=== PATIENT | female | born 1955 | race Caucasian/White ===

== ENCOUNTER 2018-12-25 18:02 | Inpatient (IN) ==
[2018-12-25] MEDS ORDERED: Sod Chloride 0.9% Inj 1,000 ML IV.SIG ONE (20:00)
--- NOTE | 2018-12-25 20:09 | ED ---
HPI General Chief complaint: Nausea/Vomiting/Diarrhea Stated complaint: Slight pain right arm /vomiting/diarrhea complaint Time Seen by Provider: 12/25/18 19:48 Source: patient and RN notes reviewed Mode of arrival: ambulatory Limitations: no limitations History of Present Illness HPI Narrative: 63-year-old female presents to the emergency department for evaluation nausea, vomiting, diarrhea that started at 430 this afternoon. Patient states that she had a history of MN and 3 CVAs in 2018. She had 2 stents placed. She states due to this, she became nervous bring her to the emergency department. Patient denies any fevers or chills. No chest pain. She states she was slightly short of breath other vomiting, but is no longer short of breath. She denies any urinary symptoms. She states she had a slight headache earlier, but this is now resolved on its own. Patient has history of hysterectomy, anxiety, depression, hypothyroid, hypercholesterolemia, hypertension, MN, CVA on Plavix and aspirin. Moderate severity. MD complaint: Reports nausea, vomiting and diarrhea; Denies abdominal pain Onset (ago): hour(s) (4) Description of Vomiting: food contents Description of Diarrhea: watery Associated Abdominal Pain: No Severity: moderate Relieving factors: none Exacerbating factors: none Context: Reports anticoagulant use; Denies recent antibiotic use, recent surgery /procedure, alcohol abuse and trauma Associated symptoms: Reports nausea/vomiting and anxiety; Denies myalgias, chest pain, cough, diaphoresis, fever/chills, headaches, loss of appetite, malaise, rash, dysuria, shortness of breath, syncope, weakness, decreased urine output, fecal incontinence, tenesmus, altered mental status, fatigue, bloating, numbness, tinnitus, palpitation and change in vision Related Data Home Medications Medication Instructions Recorded Confirmed acetaminophen 650 mg PO Q6H PRN 12/25/18 12/25/18 amlodipine [Norvasc] 5 mg PO DAILY 12/25/18 12/25/18 aspirin [Aspir-81] 81 mg PO DAILY 12/25/18 12/25/18 clopidogrel [Plavix] 75 mg PO DAILY 12/25/18 12/25/18 duloxetine 90 mg PO DAILY 12/25/18 12/25/18 levothyroxine 125 mcg PO DAILY 12/25/18 12/25/18 lisinopril 40 mg PO DAILY 12/25/18 12/25/18 metoprolol tartrate 25 mg PO BID 12/25/18 12/25/18 rosuvastatin 20 mg PO DAILY 12/25/18 12/25/18 Allergies Allergy/AdvReac Type Severity Reaction Status Date / Time acetaminophen [From Vicodin] Allergy Intermediate Vomiting Verified 12/25/18 20: 00 hydrocodone [From Vicodin] Allergy Intermediate Vomiting Verified 12/25/18 20:00 Review of Systems ROS: all other systems reviewed are negative [facility] Medical History Medical History Anxiety (Acute) Depression (Acute) H/O: hysterectomy (Acute) HTN (hypertension) (Acute) Heart attack (Acute) Hypercholesteremia (Acute) Hypothyroidism (Acute) Stroke (Acute) Surgical History Surgical History H/O heart artery stent (Acute) History of back surgery (Acute) History of parathyroid surgery (Acute) Social History Social History Substance History: No History of Abuse Second Hand Smoke Exposure: No Smoking Status: Former smoker How Often Do You Have a Drink Containing Alcohol: Monthly or less Recent Travel in [facility] within the Last 8 Weeks: No Recent Out of Country Travel within the Last 8 Weeks: No Immunization History Tetanus Immunization: Never Vaccinated Exam Narrative Exam Narrative: GENERAL: Well-nourished, well-developed female patient, afebrile SKIN: Focused skin assessment warm/dry. HEAD: Normocephalic. Atraumatic EYES: No scleral icterus. No injection or drainage. NECK: Supple, trachea midline. No JVD or lymphadenopathy. CARDIOVASCULAR: Regular rate and rhythm without murmurs, gallops, or rubs. Bilateral radial and pedal pulses are 2+ RESPIRATORY: Breath sounds equal bilaterally. No accessory muscle use. Lung sounds are clear to auscultation GASTROINTESTINAL: Abdomen soft, non-tender, nondistended. No abdominal tenderness to palpation MUSCULOSKELETAL: No cyanosis, or edema. Bilateral upper and lower extremity strength 5/5. All extremities are neurovascularly intact BACK: Nontender without obvious deformity. No CVA tenderness. NEUROLOGICAL: Awake and alert. Cranial nerves II through XII intact. Motor and sensory grossly within normal limits. Five out of 5 muscle strength in all muscle groups. Normal speech. Finger to nose is normal bilaterally. Heel to douglas is normal bilaterally. Course Initial Documented Vital Signs Temperature 98.2 F 12/25/18 18:20 Pulse Rate 90 12/25/18 18:20 Respiratory Rate 20 12/25/18 18:20 Blood Pressure 168/98 H 12/25/18 18:20 Pulse Oximetry 95 12/25/18 18:20 Last Documented Vital Signs Temperature 98.2 F 12/25/18 18:20 Pulse Rate 69 12/25/18 19:37 Respiratory Rate 18 12/25/18 19:37 Blood Pressure 172/79 H 12/25/18 19:37 Pulse Oximetry 98 12/25/18 19:37 Medical Decision Making ESTEBAN Attestation ESTEBAN supervised visit: Yes Attestation: I, Dr. Cook, have reviewed the advance practice practitioner's documentation and am in agreement, met with the patient face to face, made the diagnosis, and the medical decision making was done by me. *My assessment and Findings: 63-year-old female presents to the emergency department by private transportation for complaint of nausea vomiting diarrhea and abdominal pain since 4:30 PM this afternoon. No other family members with similar symptoms. Patient unaware of any known dietary indiscretion well water ingestion or foreign travel but does report upon history that she did drink from there RV faucet last pm. Patient does have extensive past medical history MN and CVA and previous stent placement. Patient is adamant she has had no chest pain no shortness of breath no sweats no referred neck jaw back shoulder arm pain. Abdominal pain is diffuse and not epigastric. Physical is nonfocal. Specimens collected and sent for resulting EKG ordered will assess for gastroenteritis elect light disturbance food poisoning viral syndrome as well as ACS UTI. Patient is here for symptomatic relief given bolus of normal saline and Zofran Patient identified to have elevated troponin I of 0.26 plan will be to admit the patient. [facility] Narrative Medical decision making narrative: 63-year-old female presents to the emergency department for evaluation nausea, vomiting, diarrhea since 430 this evening. She states she is nervous because she recently had MN, 3 CVA in 2018. She is here on vacation from [place]. She appears well on exam. IV access obtained. EKG , CBC, CMP, lipase, magnesium, CK, troponin, UA, chest x-ray ordered and pending. Patient is given normal saline 1 L IV bolus, Zofran 4 mg IV. EKG shows SR, HR 69. CBC shows leukocytosis 13.7. CMP shows creatinine 1.06, hyperglycemia 126. Lipase is 109. Magnesium is 2.4. CK is 112. Troponin is 0.26. UA is pending. Chest x-ray shows minimal left lung base airspace disease , presumably atelectasis. Patient states she took her Plavix and 181 mg aspirin today. Patient is given second 81 mg aspirin. Patient is admitted to hospitalist, Dr. Lock. Medical Screen Exam Complete: Yes Emergency Medical Condition: Yes Differential Diagnosis Differential Diagnosis: viral syndrome vs. electrolyte abnormality vs. dehydration vs. ACS Medical Records Medical records reviewed: Yes I reviewed the patient's medical records. Lab Data Result diagrams: 12/25/18 20:20 12/25/18 20:20 Lab Results 12/25/18 12/25/18 Range/Units 20:20 20:20 WBC 13.7 H (4.0-11.0) th/mm3 RBC 4.54 (4.00-5.30) mil/mm3 Hgb 13.6 (11.6-15.3) gm/dL Hct 39.3 (35.0-46.0) % MCV 86.6 (80.0-100.0) fL MCH 30.0 (27.0-34.0) pg MCHC 34.7 (32.0-36.0) % RDW 14.5 (11.6-17.2) % Plt Count 348 (150-450) th/mm3 MPV 8.0 (7.0-11.0) fL Neut % (Auto) 77.2 H (16.0-70.0) % Lymph % (Auto) 15.1 (9.0-44.0) % [place]ondera % (Auto) 2.2 (0.0-8.0) % Eos % (Auto) 4.2 H (0.0-4.0) % Baso % (Auto) 1.3 (0.0-2.0) % Neut # (Auto) 10.6 H (1.8-7.7) th/mm3 Lymph # (Auto) 2.1 (1.0-4.8) th/mm3 [place] # (Auto) 0.3 (0.0-0.9) th/mm3 Eos # (Auto) 0.6 H (0.0-0.4) th/mm3 Baso # (Auto) 0.2 (0.0-0.2) th/mm3 WBC Differential . Differential Comment Auto diff final Sodium 143 (136-145) meq/L Potassium 3.5 (3.5-5.1) meq/L Chloride 109 H (98-107) meq/L Carbon Dioxide 24.5 (21.0-32.0) meq/L Anion Gap 10 (5-15) meq/L BUN 15 (7-18) mg/dL Creatinine 1.06 H (0.50-1.00) mg/dL Estimated GFR 52 L (>89) mL/min Random Glucose 126 H (74-106) mg/dL Calcium 10.0 (8.5-10.1) mg/dL Magnesium 2.4 (1.5-2.5) mg/dL Total Bilirubin 0.5 (0.2-1.0) mg/dL AST 19 (15-37) U/L ALT 27 (10-53) U/L Alkaline Phosphatase 95 (45-117) U/L Total Creatine Kinase 112 (26-192) U/L CK-MB (CK-2) 2.7 (0.5-3.6) ng/mL Troponin I 0.26 H (0.02-0.05) ng/mL Total Protein 7.3 (6.4-8.2) g/dL Albumin 4.0 (3.4-5.0) g/dL Lipase 109 (73-393) U/L Imaging Data Radiologist's impression: Chest X-Ray 12/25/18 20:00 CONCLUSION: 1. Minimal left lung base airspace disease, presumably atelectasis. Discharge Plan Discharge Disposition Patient Disposition: ED Admit(ED Internal Use Only) Discharge Order Discharge Orders: ED Use Only Admit Order (Routine); Ordered 12/25/18 Ordered By: Keeley Davis Discharge Details Diagnosis: Elevated troponin, Vomiting Physicians Team ED Provider: Martha Cook ED Midlevel Provider: Keeley Davis Primary Care Provider: UNKNOWN, Attending Provider: May Lock Discharge Interventions Interventions: Vital Signs Last Done: 12/25/18 19:37 Status ED Status: Admitted Patient
--- NOTE | 2018-12-25 20:33 | XR ---
EXAM DATE: 12/25/2018 8:30 PM EST AGE/SEX: 63 years / Female INDICATIONS: Chest pain with vomiting. CLINICAL DATA: This is the patient's initial encounter. Patient reports that signs and symptoms have been present for 1 day and indicates a pain score of 2/10. MEDICAL/SURGICAL HISTORY: Stroke. Heart attack. None. COMPARISON: No prior exams available for comparison. FINDINGS: Minimal airspace disease at the left lung base. The cardiomediastinal contours are unremarkable. Os seous structures are intact. CONCLUSION: 1. Minimal left lung base airspace disease, presumably atelectasis. Electronically signed by: Atif Valdez MD Board Certified Radiologist 12/25/2018 8:32 PM EST
[2018-12-25 20:55] LABS: Baso # (Auto) 0.2 th/mm3 (0.0-0.2); Baso % (Auto) 1.3 % (0.0-2.0); Eos # (Auto) 0.6 th/mm3 (0.0-0.4); Eos % (Auto) 4.2 % (0.0-4.0); Hematocrit 39.3 % (35.0-46.0); Hemoglobin 13.6 gm/dL (11.6-15.3); Lymph # (Auto) 2.1 th/mm3 (1.0-4.8); Lymph % (Auto) 15.1 % (9.0-44.0); Mean Corpuscular HGB Conc 34.7 % (32.0-36.0); Mean Corpuscular Volume 86.6 fL (80.0-100.0); Mono # (Auto) 0.3 th/mm3 (0.0-0.9); Mono % (Auto) 2.2 % (0.0-8.0); Neut # (Auto) 10.6 th/mm3 (1.8-7.7); Neut % (Auto) 77.2 % (16.0-70.0); Platelet Count 348 th/mm3 (150-450); Red Blood Count 4.54 mil/mm3 (4.00-5.30); Red Cell Distribution Width 14.5 % (11.6-17.2); White Blood Count 13.7 th/mm3 (4.0-11.0)
[2018-12-25 21:03] LABS: Alanine Aminotransferase 27 U/L (10-53); Anion Gap 10 meq/L (5-15); Aspartate Aminotransferase 19 U/L (15-37); Blood Urea Nitrogen 15 mg/dL (7-18); Carbon Dioxide 24.5 meq/L (21.0-32.0); Chloride 109 meq/L (98-107); Glomerular Filtration Rate 52 mL/min (>89); Glucose,Random 126 mg/dL (74-106); Lipase 109 U/L (73-393); Magnesium 2.4 mg/dL (1.5-2.5); Potassium 3.5 meq/L (3.5-5.1); Sodium 143 meq/L (136-145)
[2018-12-25 21:07] LABS: Alkaline Phosphatase 95 U/L (45-117); Creatine Kinase 112 U/L (26-192); Total Protein 7.3 g/dL (6.4-8.2); Troponin I 0.26 ng/mL (0.02-0.05)
[2018-12-25 21:20] LABS: Creatine Kinase MB 2.7 ng/mL (0.5-3.6)
[2018-12-25] MEDS ORDERED: Acetaminophen 325 MG Tablet PO PRN (21:47)
[2018-12-25] MEDS ORDERED: Bisacodyl 10 MG Supp RECTAL PRN (21:47)
[2018-12-25] MEDS ORDERED: Heparin - SQ 10,000 UNITS/ML Vial SQ SCH (22:00)
[2018-12-25] MEDS: Sod Chloride 0.9% Inj 1,000 ML IV.CONT SCH (22:59)
[2018-12-26 03:34] LABS: Calcium 8.9 mg/dL (8.5-10.1); Carbon Dioxide 26.4 meq/L (21.0-32.0); Potassium 3.4 meq/L (3.5-5.1); Troponin I 0.58 ng/mL (0.02-0.05)
[2018-12-26] MEDS ORDERED: Heparin 10,000 UNITS/10 ML Vial (for IV use) IV.PUSH STA (04:21)
--- NOTE | 2018-12-26 04:31 | P.HPIM ---
History of Present Illness Primary Care Physician: UNKNOWN 63-year-old female with a past medical history significant for CVA x3 and ID x1 with stent placement in the last year, hypertension, hyperlipidemia and hypothyroidism presents to the emergency department for the evaluation of nausea and vomiting. The patient reports that she started to have nausea yesterday afternoon with associated emesis. She reports taking a shower and having some shortness of breath but denies any chest pain. She did states she had a right arm pain that she described as a shooting pain from her elbow. She denies any fever/chills. No focal neurologic deficits. No slurred speech or facial droop. Inpatient Certification Inpatient Certification: I certify that the inpatient services were ordered in accordance with Medicare regulations governing the order. This includes certification that hospital inpatient services are reasonable and necessary and in the case of services not specified as inpatient-only under 42 CFR 419.22(n), that they are appropriately provided as inpatient services in accordance to with the 2-midnight benchmark under 43 CFR 412.3(e) Estimated Total Length of Stay (Days): 3 Plans for Post Hospital Care: Not yet determined Review of Systems Review of Systems: all other systems reviewed are negative [facility] Medical History Medical History Anxiety (Acute) Depression (Acute) H/O: hysterectomy (Acute) HTN (hypertension) (Acute) Heart attack (Acute) Hypercholesteremia (Acute) Hypothyroidism (Acute) Stroke (Acute) Surgical History Surgical History H/O heart artery stent (Acute) History of back surgery (Acute) History of parathyroid surgery (Acute) Family History Family History Other Coronary artery disease Diabetes mellitus Social History Social History Substance History: No History of Abuse Second Hand Smoke Exposure: No Smoking Status: Former smoker How Often Do You Have a Drink Containing Alcohol: Monthly or less Recent Travel in [facility] within the Last 8 Weeks: No Recent Out of Country Travel within the Last 8 Weeks: No Immunization History Tetanus Immunization: Never Vaccinated Medications and Allergies Allergies Allergy/AdvReac Type Severity Reaction Status Date / Time acetaminophen [From Vicodin] Allergy Intermediate Vomiting Verified 12/25/18 20: 00 hydrocodone [From Vicodin] Allergy Intermediate Vomiting Verified 12/25/18 20:00 Home Medications Medication Instructions Recorded Confirmed Type acetaminophen 650 mg PO Q6H PRN 12/25/18 12/25/18 History amlodipine [Norvasc] 5 mg PO DAILY 12/25/18 12/25/18 History aspirin [Aspir-81] 81 mg PO DAILY 12/25/18 12/25/18 History clopidogrel [Plavix] 75 mg PO DAILY 12/25/18 12/25/18 History duloxetine 90 mg PO DAILY 12/25/18 12/25/18 History levothyroxine 125 mcg PO DAILY 12/25/18 12/25/18 History lisinopril 40 mg PO DAILY 12/25/18 12/25/18 History metoprolol tartrate 25 mg PO BID 12/25/18 12/25/18 History rosuvastatin 20 mg PO DAILY 12/25/18 12/25/18 History Active Medications: Active Medications Acetaminophen (Tylenol) 650 mg PO Q4H PRN PRN Reason: Temp > 100.4 Al Hydroxide/Mg Hydroxide (Milk Of Magnesia Liq) 30 ml PO Q12H PRN PRN Reason: Mild Constipation Amlodipine Besylate (Norvasc) 5 mg PO DAILY [facility] Aspirin (Ecotrin) 81 mg PO DAILY [facility] Bisacodyl (Dulcolax Supp) 10 mg RECTAL DAILY PRN PRN Reason: SEVERE CONSITIPATION Clopidogrel Bisulfate (Plavix) 75 mg PO DAILY [facility] Heparin Sodium (Porcine) (Heparin Inj) 2,500 units IV.PUSH UNSCH PRN PRN Reason: aPTT 25-39 Heparin Sodium (Porcine) (Heparin Inj) 4,000 units IV.PUSH NOW STA Stop: 12/26/18 04:22 Sodium Chloride (Ns Inj) 1,000 mls @ 70 mls/hr IV.CONT .[id number] [facility] Last Admin: 12/25/18 22:59 Dose: 70 mls/hr Heparin Sodium/Dextrose (Heparin/D5w 25,000 U/250 Ml) 25,000 unit in 250 mls @ 0 mls/hr IV.CONT TITRATE PRN; Protocol PRN Reason: Per Protocol Lactulose (Lactulose Liq) 30 ml PO DAILY PRN PRN Reason: SEVERE CONSITIPATION Metoprolol Tartrate (Lopressor) 25 mg PO BID [facility] Non-Formulary Medication (Duloxetine) 90 mg PO DAILY JOHN Non-Formulary Medication (Levothyroxine [Levothyroxine]) 125 mcg PO DAILY JOHN Non-Formulary Medication (Lisinopril [Lisinopril]) 40 mg PO DAILY JOHN Non-Formulary Medication (Rosuvastatin [Rosuvastatin]) 20 mg PO DAILY [facility] Ondansetron HCl (Zofran Inj) 4 mg IV.PUSH Q6H PRN PRN Reason: NAUSEA OR VOMITING Last Admin: 12/26/18 03:10 Dose: 4 mg Senna/Docusate Sodium (Yari-Colace) 1 tab PO BID [facility] Sennosides (Senokot) 17.2 mg PO Q12H PRN PRN Reason: Moderate Constipation Sodium Chloride (Ns Flush) 2 ml IV.FLUSH PRN PRN PRN Reason: FLUSH AFTER USING IV ACCESS Sodium Chloride (Ns Flush) 2 ml IV.FLUSH BID JOHN Sodium Chloride (Ns Flush) 2 ml IV.FLUSH PRN PRN PRN Reason: FLUSH AFTER USING IV ACCESS Physical Exam Vital signs: Vital Signs 12/25/18 18:20 12/25/18 19:37 12/25/18 23:05 Temperature 98.2 F Pulse Rate 90 69 71 Respiratory Rate 20 18 Blood Pressure 168/98 H 172/79 H Pulse Oximetry 95 98 12/25/18 23:07 12/26/18 03:00 Temperature Pulse Rate 74 65 Respiratory Rate 18 16 Blood Pressure 136/85 117/62 Pulse Oximetry 95 96 Intake & Output 12/25/18 12/25/18 12/26/18 06:59 18:59 06:59 Intake Total 1000 / 1000 Balance 1000 / 1000 Weight 81.647 kg Intake: IV 1000 / 1000 NS Inj 1,000 ML @ Wide Open IV. 1000 / 1000 SIG BOLUS ONE Rx#:[id number] Narrative: Gen.: No acute distress Head: Normocephalic. Atraumatic. EENT: Pupils equal round and reactive to light. Nose without drainage. Airway intact. Throat without injection. Cardiovascular: Regular rate and rhythm. No murmurs, rubs or gallops. Respiratory: Lungs clear to auscultation bilaterally. No wheezes or rhonchi. Abdomen: Soft, nontender, nondistended. No peritoneal signs. Musculoskeletal: No gross deformities. No edema. Skin: No obvious rashes or erythema. Neuro: Cranial nerves II through XII intact. Strength 5/5 throughout. No slurred speech. Results Labs CBC & Chem 7: 12/25/18 20:20 12/26/18 02:45 Imaging Impressions Chest X-Ray 12/25/18 20:00 CONCLUSION: 1. Minimal left lung base airspace disease, presumably atelectasis. Caprini VTE Risk Assessment Caprini VTE Risk Assessment: Moderate/High Risk (score >= 2) Caprini Risk Assessment Model: Point Value = 1 Point Value = 2 Point Value = 3 Point Value = 5 Age 41-60 Minor surgery BMI > 25 kg/m2 Swollen legs Varicose veins or History of unexplained or recurrent spontaneous Oral contraceptives or hormone replacement Sepsis (< 1 month) Serious lung disease, including pneumonia (< 1 month) Abnormal pulmonary function Acute myocardial infarction Congestive heart failure (< 1 month) History of inflammatory bowel disease Medical patient at bed rest Age 61-74 Arthroscopic surgery Major open surgery (> 45 min) Laparoscopic surgery (> 45 min) Malignancy Confined to bed (> 72 hours) Immobilizing plaster cast Central venous access Age >= 75 History of VTE Family history of VTE Factor V Leiden Prothrombin [id number] Lupus anticoagulant Anticardiolipin antibodies Elevated serum homocysteine Heparin-induced thrombocytopenia Other congenital or acquired thrombophilia Stroke (< 1 month) Elective arthroplasty Hip, pelvis, or leg fracture Acute spinal cord injury (< 1 month) Prophylaxis Regimen: Total Risk Factor Score Risk Level Prophylaxis Regimen 0-1 Low Early ambulation 2 Moderate Order ONE of the following: *Sequential Compression Device (SCD) *Heparin 5000 units SQ BID 3-4 Higher Order ONE of the following medications: *Heparin 5000 units SQ TID *Enoxaparin/Lovenox 40 mg SQ daily (WT < 150 kg, CrCl > 30 mL/min) *Enoxaparin/Lovenox 30 mg SQ daily (WT < 150 kg, CrCl > 10-29 mL/min) *Enoxaparin/Lovenox 30 mg SQ BID (WT < 150 kg, CrCl > 30 mL/min) AND/OR *Sequential Compression Device (SCD) 5 or more Highest Order ONE of the following medications: *Heparin 5000 units SQ TID (Preferred with Epidurals) *Enoxaparin/Lovenox 40 mg SQ daily (WT < 150 kg, CrCl > 30 mL/min) *Enoxaparin/Lovenox 30 mg SQ daily (WT < 150 kg, CrCl > 10-29 mL/min) *Enoxaparin/Lovenox 30 mg SQ BID (WT < 150 kg, CrCl > 30 mL/min) AND *Sequential Compression Device (SCD) Assessment and Plan Plan Assessment/plan: 1. NSTEMI/CAD Initial troponin 0.26, repeat 0.[address] segment elevation or troponin, personally reviewed Patient is visiting from [place] where she is followed by a landscaper helper Heparin bolus and drip Cardiology consulted, appreciate assistance 2. History of CVA Continue aspirin and Plavix 3. Hypertension/hyperlipidemia/hypothyroidism Continue home medications FEN N.p.o. Electrolytes: Status post p.o. repletion of potassium, monitor BMP NS at 70 cc/hour Heparin
[2018-12-26] MEDS ORDERED: Sodium Chloride 0.9% 2 ML Flush PRN IV.FLUSH (04:35)
[2018-12-26] MEDS: Heparin Drip 25,000 UNIT/250 ML BAG IV.CONT PRN (04:44)
[2018-12-26 05:14] LABS: Activated Partial Thrombo Time 23.7 sec (23.4-31.7); Prothrombin Time 10.5 sec (9.8-11.6)
[2018-12-26] MEDS: Levothyroxine 125 MCG Tablet PO SCH (05:28)
[2018-12-26] MEDS: Lisinopril 20 MG Tablet PO SCH (08:52)
[2018-12-26] MEDS: Sodium Chloride 0.9% 2 ML Flush BID IV.FLUSH SCH ×2 (08:53→20:43)
[2018-12-26] MEDS: Metoprolol Tartrate 25 MG Tablet PO SCH ×2 (08:53→20:43)
[2018-12-26] MEDS: amLODIPine 5 MG Tablet PO SCH (08:53)
[2018-12-26] MEDS: Senna/Docusate Sodium 8.6/50 MG Tablet PO SCH ×2 (08:53→20:43)
[2018-12-26] MEDS ORDERED: Heparin 10,000 UNITS/10 ML Vial (for IV use) IV.PUSH PRN ×2 (10:22→10:32)
[2018-12-26 10:56] LABS: Baso # (Auto) 0.1 th/mm3 (0.0-0.2); Eos # (Auto) 0.2 th/mm3 (0.0-0.4); Eos % (Auto) 1.2 % (0.0-4.0); Hematocrit 37.9 % (35.0-46.0); Hemoglobin 13.1 gm/dL (11.6-15.3); Lymph % (Auto) 30.9 % (9.0-44.0); Mean Corpuscular HGB Conc 34.6 % (32.0-36.0); Mean Corpuscular Hemoglobin 30.2 pg (27.0-34.0); Mean Corpuscular Volume 87.3 fL (80.0-100.0); Mono # (Auto) 0.8 th/mm3 (0.0-0.9); Mono % (Auto) 5.9 % (0.0-8.0); Neut # (Auto) 7.9 th/mm3 (1.8-7.7); Platelet Count 314 th/mm3 (150-450); Red Blood Count 4.34 mil/mm3 (4.00-5.30); Red Cell Distribution Width 13.7 % (11.6-17.2)
[2018-12-26 11:25] LABS: Troponin I 1.93 ng/mL (0.02-0.05)
[2018-12-26 11:38] LABS: Creatine Kinase MB 15.8 ng/mL (0.5-3.6)
--- NOTE | 2018-12-26 13:54 | P.PNIM ---
Ms. Francois is a pleasant 63-year-old female with a history of coronary artery disease, [facility] who was admitted to the hospital due to shortness of breath, right arm pain. She was found to have elevated troponins. She was a started on heparin drip and cardiology was consulted. Her symptoms along with left findings are consistent with non-ST elevation myocardial infarction. Cardiology is planning to perform cardiac catheterization in the morning on 12/27/2018. We will continue heparin drip. Also continue amlodipine , lisinopril for blood pressure. Also continue aspirin 81 mg, Plavix 75 mg, metoprolol 25 mg p.o. twice daily, atorvastatin 40 mg p.o. daily. Currently on cardiac diet. We will keep patient n.p.o. midnight.
--- NOTE | 2018-12-26 15:44 | ECG ---
Date Performed: 12/26/2018 Time Performed: 10:56:44 PTAGE: 63 years EKG: Sinus rhythm . Anteroseptal infarct - age undetermined Possible LVH with secondary repolarization abnormality Infe rior/lateral ST-T changes are probably due to ventricular hypertrophy Abnormal ECG Since PREVIOUS TRACING , no significant change noted DOCTOR: Megan Panda Interpretating Date/Time 12/26/2018 15:42:11
--- NOTE | 2018-12-26 16:00 | P.CONCA ---
History of Present Illness Service: Cardiology Consult date: 12/26/18 Reason for Consult: NSTEMI Primary Care Provider: UNKNOWN History of Present Illness: This is a 63-year-old female with a past medical history of CVA X 3, KS X 1 with stent placement, hypertension, hyperlipidemia and hypothyroidism. She presented to the Emergency Department (ED) with complaints of nausea and vomiting for the last 2 days. She stated that she was taking a shower and developed SOB without chest pain. She did admit to having right arm pain that started in the elbow that she describes as a shooting pain. Currently, she denies any CP, pressure, palpitations, dizziness, edema or SOB. Review of Systems All other systems reviewed negative except as stated in HPI PMFSH - History History Provided By: Patient, Significant Other - Medical History Medical History: Medical History (Last Reviewed 12/26/18 @ 04:26 by May Lock MD) Anxiety Depression H/O: hysterectomy HTN (hypertension) Heart attack Hypercholesteremia Hypothyroidism Stroke - Surgical History Surgical History: Surgical History (Last Reviewed 12/26/18 @ 04:26 by May Lock MD) H/O heart artery stent History of back surgery History of parathyroid surgery - Family History Family History: Family History Other Coronary artery disease Diabetes mellitus - Tobacco History Second Hand Smoke Exposure: No Tobacco Use In Past 30 Days: No Smoking Status: Former smoker - Alcohol History How Often Do You Have a Drink Containing Alcohol: Monthly or less - Substance Use History Substance History: No History of Abuse - Travel History Recent Travel in the [place] Within the Last 8 Weeks: No Recent Travel Out of the Country Within the Last 8 Weeks: No - Immunization History Tetanus Immunization: Never Vaccinated Medications and Allergies Allergies Allergy/AdvReac Type Severity Reaction Status Date / Time acetaminophen [From Vicodin] Allergy Intermediate Vomiting Verified 12/25/18 20: 00 hydrocodone [From Vicodin] Allergy Intermediate Vomiting Verified 12/25/18 20:00 Home Medications Medication Instructions Recorded Confirmed Type acetaminophen 650 mg PO Q6H PRN 12/25/18 12/25/18 History amlodipine [Norvasc] 5 mg PO DAILY 12/25/18 12/25/18 History aspirin [Aspir-81] 81 mg PO DAILY 12/25/18 12/25/18 History clopidogrel [Plavix] 75 mg PO DAILY 12/25/18 12/25/18 History duloxetine 90 mg PO DAILY 12/25/18 12/25/18 History levothyroxine 125 mcg PO DAILY 12/25/18 12/25/18 History lisinopril 40 mg PO DAILY 12/25/18 12/25/18 History metoprolol tartrate 25 mg PO BID 12/25/18 12/25/18 History rosuvastatin 20 mg PO DAILY 12/25/18 12/25/18 History Active Medications: Active Medications Acetaminophen (Tylenol) 650 mg PO Q4H PRN PRN Reason: Temp > 100.4 Al Hydroxide/Mg Hydroxide (Milk Of Magnesia Liq) 30 ml PO Q12H PRN PRN Reason: Mild Constipation Amlodipine Besylate (Norvasc) 5 mg PO DAILY [facility] Last Admin: 12/26/18 08:53 Dose: 5 mg Aspirin (Ecotrin) 81 mg PO DAILY [facility] Last Admin: 12/26/18 08:53 Dose: 81 mg Atorvastatin Calcium (Lipitor) 40 mg PO DAILY [facility] Last Admin: 12/26/18 08:53 Dose: 40 mg Bisacodyl (Dulcolax Supp) 10 mg RECTAL DAILY PRN PRN Reason: SEVERE CONSITIPATION Clopidogrel Bisulfate (Plavix) 75 mg PO DAILY [facility] Last Admin: 12/26/18 08:53 Dose: 75 mg Duloxetine HCl (Cymbalta) 90 mg PO DAILY [facility] Last Admin: 12/26/18 08:53 Dose: 90 mg Heparin Sodium (Porcine) (Heparin Inj) 2,500 units IV.PUSH UNSCH PRN PRN Reason: aPTT 25-39 Heparin Sodium (Porcine) (Heparin Inj) 5,000 units IV.PUSH UNSCH PRN PRN Reason: aPTT < 25 Last Admin: 12/26/18 08:43 Dose: 5,000 units Sodium Chloride (Ns Inj) 1,000 mls @ 70 mls/hr IV.CONT .[id number] [facility] Last Infusion: 12/26/18 08:29 Dose: 70 mls/hr Heparin Sodium/Dextrose (Heparin/D5w 25,000 U/250 Ml) 25,000 unit in 250 mls @ 10 mls/hr IV.CONT TITRATE PRN; Protocol PRN Reason: Per Protocol Last Titration: 12/26/18 11:30 Dose: 0 units/hr, 0 mls/hr Lactulose (Lactulose Liq) 30 ml PO DAILY PRN PRN Reason: SEVERE CONSITIPATION Levothyroxine Sodium (Synthroid) 125 mcg PO DAILY@0600 [facility] Last Admin: 12/26/18 05:28 Dose: 125 mcg Lisinopril (Prinivil) 40 mg PO DAILY [facility] Last Admin: 12/26/18 08:52 Dose: 40 mg Metoprolol Tartrate (Lopressor) 25 mg PO BID [facility] Last Admin: 12/26/18 08:53 Dose: 25 mg Ondansetron HCl (Zofran Inj) 4 mg IV.PUSH Q6H PRN PRN Reason: NAUSEA OR VOMITING Last Admin: 12/26/18 03:10 Dose: 4 mg Senna/Docusate Sodium (Yari-Colace) 1 tab PO BID [facility] Last Admin: 12/26/18 08:53 Dose: 1 tab Sennosides (Senokot) 17.2 mg PO Q12H PRN PRN Reason: Moderate Constipation Sodium Chloride (Ns Flush) 2 ml IV.FLUSH BID [facility] Last Admin: 12/26/18 08:53 Dose: 2 ml Sodium Chloride (Ns Flush) 2 ml IV.FLUSH PRN PRN PRN Reason: FLUSH AFTER USING IV ACCESS Exam Vital signs: Vital Signs 12/25/18 18:20 12/25/18 19:37 12/25/18 23:05 Temperature 98.2 F Pulse Rate 90 69 71 Respiratory Rate 20 18 Blood Pressure 168/98 H 172/79 H Pulse Oximetry 95 98 12/25/18 23:07 12/26/18 03:00 12/26/18 05:00 Temperature Pulse Rate 74 65 71 Respiratory Rate 18 16 Blood Pressure 136/85 117/62 Pulse Oximetry 95 96 12/26/18 06:19 12/26/18 07:00 12/26/18 08:00 Temperature 97.6 F 99.1 F Pulse Rate 74 71 72 Respiratory Rate 20 20 Blood Pressure 139/95 H 134/64 Pulse Oximetry 96 95 12/26/18 09:00 12/26/18 10:00 12/26/18 11:00 Temperature Pulse Rate 64 70 78 Respiratory Rate Blood Pressure Pulse Oximetry 12/26/18 12:00 12/26/18 13:00 12/26/18 14:00 Temperature 98.2 F Pulse Rate 70 74 80 Respiratory Rate 20 Blood Pressure 122/76 Pulse Oximetry 96 12/26/18 15:00 12/26/18 15:29 Temperature 97.8 F Pulse Rate 74 74 Respiratory Rate 20 Blood Pressure 130/71 Pulse Oximetry 95 Intake & Output 12/25/18 12/26/18 12/26/18 18:59 06:59 18:59 Intake Total 1020 / 1020 Output Total 600 / 600 Balance 420 / 420 Weight 81.647 kg 84.5 kg Intake: IV 1000 / 1000 NS Inj 1,000 ML @ Wide Open IV. 1000 / 1000 SIG BOLUS ONE Rx#:[id number] Oral Output: Urine 600 / 600 Other: Date of Last Bowel Movement 12/25/18 12/25/18 - Constitutional no acute distress - Routine HEENT Exam Head: Present: normocephalic Eye: Present: PERRL ENT: Present: mucous membranes moist - Routine Neck Exam Present: full ROM - Routine Respiratory Exam Present: CTA bilaterally - Routine Cardiovascular Exam Present: S1, S2. Absent: murmur, gallop, rubs - Routine Abdominal Exam Present: normoactive bowel sounds - Routine Extremities Exam Present: full ROM, pulses intact, normal capillary refill. Absent: cyanosis, clubbing, edema - Routine Skin Exam Present: intact - Routine Neurological Exam Present: oriented X3 - Detailed Neurological Exam: Coma Scale Eye Opening: Spontaneous Verbal Response: Oriented Motor Response: Obey commands [place] Coma Scale Total: 15 Results 12/26/18 10:26 12/26/18 02:45 Cardiac Enzymes 12/25/18 12/26/18 12/26/18 Range/Units 20:20 02:45 10:26 AST 19 (15-37) U/L CK-MB (CK-2) 2.7 15.8 H (0.5-3.6) ng/mL Troponin I 0.26 H 0.58 H D 1.93 H* D (0.02-0.05) ng/mL Coagulation 12/26/18 12/26/18 Range/Units 04:30 10:26 PT 10.5 (9.8-11.6) sec APTT 23.7 Greater than 277.5 H* (23.4-31.7) sec CBC 12/25/18 12/26/18 Range/Units 20:20 10:26 WBC 13.7 H 13.0 H (4.0-11.0) th/mm3 RBC 4.54 4.34 (4.00-5.30) mil/mm3 Hgb 13.6 13.1 (11.6-15.3) gm/dL Hct 39.3 37.9 (35.0-46.0) % Plt Count 348 314 (150-450) th/mm3 Neut # (Auto) 10.6 H 7.9 H (1.8-7.7) th/mm3 Lymph # (Auto) 2.1 4.0 (1.0-4.8) th/mm3 [place] # (Auto) 0.3 0.8 (0.0-0.9) th/mm3 Eos # (Auto) 0.6 H 0.2 (0.0-0.4) th/mm3 Baso # (Auto) 0.2 0.1 (0.0-0.2) th/mm3 Comprehensive Metabolic Panel 12/25/18 12/26/18 Range/Units 20:20 02:45 Sodium 143 146 H (136-145) meq/L Potassium 3.5 3.4 L (3.5-5.1) meq/L Chloride 109 H 112 H (98-107) meq/L Carbon Dioxide 24.5 26.4 (21.0-32.0) meq/L BUN 15 12 (7-18) mg/dL Creatinine 1.06 H 0.85 (0.50-1.00) mg/dL Calcium 10.0 8.9 D (8.5-10.1) mg/dL AST 19 (15-37) U/L ALT 27 (10-53) U/L Alkaline Phosphatase 95 (45-117) U/L Total Protein 7.3 (6.4-8.2) g/dL Albumin 4.0 (3.4-5.0) g/dL Intake and Output 12/26/18 12/26/18 12/26/18 06:59 14:59 22:59 Intake Total Output Total 600 / 600 Balance -580 / -580 Intake: Oral Output: Urine 600 / 600 Other: Date of Last Bowel Movement 12/25/18 12/25/18 Weight 84.5 kg - Imaging and Cardiology Imaging: Impressions Chest X-Ray 12/25/18 20:00 CONCLUSION: 1. Minimal left lung base airspace disease, presumably atelectasis. Assessment and Plan - Assessment (1) Elevated troponin Code(s): R74.8 - Abnormal levels of other serum enzymes Status: Acute (2) Hypertension Code(s): I10 - Essential (primary) hypertension Status: Acute (3) Hypothyroidism Code(s): E03.9 - Hypothyroidism, unspecified Status: Acute (4) Vomiting Code(s): R11.10 - Vomiting, unspecified Status: Acute - Plan Troponin levels are trending up. Continue anticoagulation with heparin. We will proceed with cardiac catheterization. Keep patient NPO after midnight. Have consent signed and placed on chart. Risk factors associated with but not limited to include; risk for bleeding and/ or infection at the insertion site, damage to the coronary arteries, allergic reaction, acute kidney injury, heart attack, stroke and/or possible . We discussed the risk factors and procedure with the patient and her . The both verbalized understanding and wish to proceed. We will continue to monitor the patient during her hospitalization. The patient was seen and evaluated by Dr. Bemrudez who participated in care, management and decision making. - Attending Attestation Patient seen and examined. I reviewed and agree with the evaluation and plan as presented. Continue current program for NSTEMI. Proceed with cardiac cath and PCI if necessary tomorrow. D/w pt and . (4) Vomiting Qualifiers: Vomiting type: unspecified Vomiting Intractability: non-intractable Nausea presence: with nausea Qualified Code(s): R11.2 - Nausea with vomiting, unspecified
--- NOTE | 2018-12-26 16:02 | ECG ---
Date Performed: 12/26/2018 Time Performed: 02:57:08 PTAGE: 63 years EKG: Sinus rhythm SEPTAL MYOCARDIAL INFARCTION ACUTE IN Since PREVIOUS TRACING , no significant change noted PREVIOUS TRACIN12/25/2018 20.28 DOCTOR: Megan Panda Interpretating Date/Time 12/26/2018 16:02:01
--- NOTE | 2018-12-26 16:21 | ECG ---
Date Performed: 12/25/2018 Time Performed: 20:28:00 PTAGE: 63 years EKG: Sinus rhythm LEFT VENTRICULAR HYPERTROPHY AND ST-T CHANGE ABNORMAL ECG NO PREVIOUS TRACING DOCTOR: Megan Panda Interpretating Date/Time 12/26/2018 16:18:42
[2018-12-26] MEDS: Sod Chloride 0.9% Inj 1,000 ML IV.CONT SCH ×2 (18:53→21:07)
[2018-12-27] MEDS: Sod Chloride 0.9% Inj 1,000 ML IV.CONT SCH (02:07)
[2018-12-27] MEDS: Levothyroxine 125 MCG Tablet PO SCH (05:14)
[2018-12-27] MEDS: Heparin Drip 25,000 UNIT/250 ML BAG IV.CONT PRN (06:24)
[2018-12-27 06:49] LABS: Hematocrit 35.5 % (35.0-46.0); Hemoglobin 12.2 gm/dL (11.6-15.3); Mean Corpuscular HGB Conc 34.3 % (32.0-36.0); Mean Corpuscular Volume 87.4 fL (80.0-100.0); Mean Platelet Volume 6.7 fL (7.0-11.0); Platelet Count 252 th/mm3 (150-450); Red Blood Count 4.06 mil/mm3 (4.00-5.30); Red Cell Distribution Width 13.7 % (11.6-17.2); White Blood Count 9.5 th/mm3 (4.0-11.0)
[2018-12-27] MEDS: Senna/Docusate Sodium 8.6/50 MG Tablet PO SCH ×2 (09:18→21:22)
[2018-12-27] MEDS: Metoprolol Tartrate 25 MG Tablet PO SCH ×2 (09:19→21:18)
[2018-12-27] MEDS: amLODIPine 5 MG Tablet PO SCH (09:19)
[2018-12-27] MEDS: Lisinopril 20 MG Tablet PO SCH (09:23)
[2018-12-27] MEDS: Sodium Chloride 0.9% 2 ML Flush BID IV.FLUSH SCH ×2 (09:24→21:20)
--- NOTE | 2018-12-27 10:04 | P.PNIM ---
Subjective Interval history: Patient says she is feeling all right. Reports chest pain has resolved. Physical Exam Vital signs: Vital Signs 12/26/18 10:00 12/26/18 11:00 12/26/18 12:00 Temperature 98.2 F Pulse Rate 70 78 70 Respiratory Rate 20 Blood Pressure 122/76 Pulse Oximetry 96 12/26/18 13:00 12/26/18 14:00 12/26/18 15:00 Temperature Pulse Rate 74 80 74 Respiratory Rate Blood Pressure Pulse Oximetry 12/26/18 15:29 12/26/18 16:00 12/26/18 17:00 Temperature 97.8 F Pulse Rate 74 80 78 Respiratory Rate 20 Blood Pressure 130/71 Pulse Oximetry 95 12/26/18 18:00 12/26/18 19:00 12/26/18 20:00 Temperature 98.8 F Pulse Rate 80 80 76 Respiratory Rate 19 Blood Pressure 128/76 Pulse Oximetry 96 12/26/18 21:00 12/26/18 22:00 12/26/18 23:00 Temperature Pulse Rate 76 92 H 68 Respiratory Rate Blood Pressure Pulse Oximetry 12/27/18 00:00 12/27/18 01:00 12/27/18 02:00 Temperature 98.1 F Pulse Rate 59 L 63 61 Respiratory Rate 18 Blood Pressure 156/88 H Pulse Oximetry 95 12/27/18 03:00 12/27/18 04:00 12/27/18 05:00 Temperature 97.8 F Pulse Rate 64 61 64 Respiratory Rate 17 Blood Pressure 143/77 H Pulse Oximetry 94 L 12/27/18 06:00 12/27/18 08:00 Temperature 98.3 F Pulse Rate 68 68 Respiratory Rate 20 Blood Pressure 153/82 H Pulse Oximetry 94 L Intake & Output 12/26/18 12/27/18 12/27/18 18:59 06:59 18:59 Intake Total 1660 / 1660 790 / 790 Output Total 800 / 800 1000 / 1000 Balance 860 / 860 -210 / -210 Weight 86 kg Intake: IV 700 / 700 550 / 550 Heparin/D5W 25,000 U/250 mL 25, 250 / 250 000 unit In 250 ml @ 1,000 UNITS/HR 10 mls/hr IV.CONT TITRATE PRN Rx#:[id number] NS Inj 1,000 ML @ 70 mls/hr IV. 700 / 700 300 / 300 CONT .[id number] JOHN Rx#:[id number] Oral 960 / 960 240 / 240 Output: Urine 800 / 800 1000 / 1000 Other: Date of Last Bowel Movement 12/25/18 12/25/18 # Bowel Movements 0 Narrative: GENERAL: Patient walking in room. SKIN: Warm and dry. HEAD: Normocephalic. EYES: No scleral icterus. No injection or drainage. NECK: Supple, trachea midline. No JVD. CARDIOVASCULAR: Regular rate and rhythm without murmurs, gallops, or rubs. RESPIRATORY: Breath sounds equal bilaterally. No accessory muscle use. GASTROINTESTINAL: Abdomen soft, non-tender, nondistended. MUSCULOSKELETAL: No cyanosis, or edema. BACK: Nontender without obvious deformity. No CVA tenderness. Results Labs CBC & Chem 7: 12/27/18 06:23 12/26/18 02:45 Assessment and Plan (1) Elevated troponin: Code(s): R74.8 - Abnormal levels of other serum enzymes Status: Acute (2) Hypertension: Code(s): I10 - Essential (primary) hypertension Status: Acute (3) Hypothyroidism: Code(s): E03.9 - Hypothyroidism, unspecified Status: Acute (4) Vomiting: Code(s): R11.10 - Vomiting, unspecified Status: Acute Plan //NSTEMI/CAD Initial troponin 0.26, repeat 0.[address] segment elevation or troponin, personally reviewed Patient is visiting from [place] where she is followed by a postdoctoral scholar Heparin bolus and drip Cardiology consulted, appreciate assistance = Cardiac catheterization today. Check drug screen. Check TSH. //Hypernatremia. Sodium 146 likely secondary to IV fluids. Switch to one half normal saline. Recheck and monitor. //History of CVA Continue aspirin and Plavix //Hypertension/hyperlipidemia/hypothyroidism Continue home medications FEN N.p.o. Electrolytes: Status post p.o. repletion of potassium, monitor BMP 1/2 NS at 84 cc/hour Heparin gtt Discharge Planning: Pending cardiology clearance. _ (1) Hypertension Qualifiers: Hypertension type: (2) Hypothyroidism Qualifiers: Hypothyroidism type: (3) Vomiting Qualifiers: Nausea presence: with nausea Vomiting Intractability: non-intractable Vomiting type: unspecified Qualified Code(s): R11.2 - Nausea with vomiting, unspecified
[2018-12-27] MEDS ORDERED: Heparin/NS PF Inj 1,000 ML ONE ×2 (10:13→12:36)
[2018-12-27] MEDS ORDERED: fentaNYL Citrate Inj 100 MCG/2 ML Ampul ONE (10:19)
[2018-12-27] MEDS ORDERED: Heparin 10,000 UNITS/10 ML Vial (for IV use) ONE (10:51)
[2018-12-27] MEDS ORDERED: Cangrelor Inj 50,000 MCG Vial ONE (11:21)
--- NOTE | 2018-12-27 11:49 | CATHPROC ---
Nasseo HIS Report Study Information Study Number Admission Scheduled Start Study Start [id number] Dec 25 2018 9:47PM 12/27/2018 Dec 27 2018 9:24AM [facility] Service Cardiac Catheterization Admit Source Facility Department Emergency department [facility] - Senior Marketing Specialist Physician and Clinical Staff Initial Anthony Ruelas Claims Associate Neri Cristina,RN Recorder Priyanka Woods,RT(R) (BS) Scrub Letty DietzRT(R) Procedures Performed Procedure Location (Site) Vessel Name Angiogram LV LV Ventricle Coronary Angiograms LCA Left Coronary Coronary Angiograms RCA Right Coronary Drug Eluting Inflatio CIRC Mid CIRC L Heart Cath PTCA CIRC Mid CIRC Wire insertion Fem Art (right) Femoral Art Equipment Time Gallery Host Description Size Mfg Part Number Used/Scraped WIRE, BALANCE MIDDLEWEIGHT [id number] 10:52 [employer] 190CM Used 190CM *[id number] WIRE, HI TORQUE ALLSTAR [id number] 11:15 [employer] 190CM Used 190CM *[id number] TRANSDUCER, TRUWAVE [id number] 09:26 HUGHES PHAN * Used W/STOCKCOCK *[id number] WIRE, CHOICE PT EX. SUPPORT [id number] 11:10 [employer] 180CM Used 182CM *[id number] *[id number] [id number] *[id number] 534-520T *[id number] 534-552S *[id number] *[id number] 11:26 DAIG/ST. ESTELA MEDICAL ANGIOSEAL, FR6 VIP FR 6 Used *[id number] 09:26 PPDai BLANKET,WARM AIR CCL * Used *[id number] 09:26 PPDai PACK, CCL CUSTOM * Used *[id number] 09:26 [employer] PACER PEN, SKIN DUAL W/ RULER * Used *[id number] 11:03 MEDTRONIC BALLOON, 2.0 X 10MM EUPHORA 10MM Used *[id number] 11:08 MEDTRONIC STENT, 2.75 15MM XENIA 2.75 15MM Used *[id number] 11:05 Landingi 30 JONO INDEFLATOR Used *[id number] 10:56 Landingi SHEATH, FR6.5 PRELUDE 11CM FR 6.5 038ACT Used *[id number] 09:26 Landingi WIRE, 3MMJ .035 180CM 180CM Used *[id number] PROBE COVER, STERILE [id number] 09:26 [employer] * Used ULTRASOUND W/ GEL *[id number] 09:26 NAMIC MANIFOLD, 4 PORT * Used *[id number] 09:26 NAMIC TUBING, HIGH PRESSURE 48" 48" Used *[id number] 09:26 NYCOMED OMNIPAQUE, 350 MG, 150ML 150ML [id number] Used [id number] 09:26 TERUMO MEDICAL SHEATH, FR5 TERUMO (10CM) FR 5 Used *[id number] Equipment Model, Serial, Lot Number and Expiration Data Description Model Number Serial Number Lot Number Expiration Date ANGIOSEAL, FR6 VIP [id number] 07-05-2019 STENT, 2.75 15MM XENIA [id number] 09-03-2020 WIRE, CHOICE PT EX. SUPPORT [id number] 07-15-2020 182CM History: Current Medications Medication Dosage/Unit Route Frequency Last Date/Time Taken Statins (any) Beta Iram NORVASC ASA PLAVIX History: Allergies Allergy Reaction hydrocodone Vomiting acetaminophen Vomiting History: Risk Factors Family History of Hypertension Dyslipidemia Previous ND Previous Heart Failure Premature CAD Yes Yes Yes Yes No Prior Valve Prior PCI Prior PCIDate Prior CABG Surgery No Yes 12/10/2017 No Cerebrovascular Peripheral Artery Chronic Lung On Dialysis Diabetes Disease Disease Disease No Yes No No No History: Stress Tests Stress or Imaging Studies Performed No Labs Hgb (g/dl) Hct (%) WBC (l/cumm) Platelets (thousands) 11.60-17.00 35.00-51.00 4.00-11.00 150.00-450.00 12.2 35.5 9.5 252 Glucose (mg/dl) BUN (mg/dl) Creatinine (mg/dl) BUN:Creatinine (1:x) 74.00-106.00 7.00-18.00 0.50-1.30 10.00-20.00 111 12 0.8 15 Na (meq/l) K (meq/l) 136.00-145.00 3.50-5.10 146 3.4 INR (PTT:PT) 0.90-1.10 1 Troponin I (ng/ml) CPK (u/l) CPK-MB (ng/ML) 0.02-0.05 26.00-308.00 0.50-3.60 1.93 225 Not Drawn Medication Medication Total Dose (Bolus/Oral) Medication Total Dosage/Unit 1% XYLOCAINE 20 mL BRILINTA 180 mg FENTANYL 25 mcg HEPARIN 5000 units NTG (IC) 400 mcg VERSED 3 mg Medications (Bolus/Oral) Medication Time Given Dosage/Unit Administered By Reason 1% XYLOCAINE 12/27/2018 10:32:36 AM 20 mL Letty Dietz 20 mL 1% XYLOCAINE given in lab by Letty Dietz RT(R) via Subcutaneous. VERSED 12/27/2018 10:38:27 AM 2 mg Ibeth, Neri 2 mg VERSED given in lab by Neri Cristina RN via Peripheral IV. FENTANYL 12/27/2018 10:39:31 AM 25 mcg Ibeth, Neri 25 mcg FENTANYL given in lab by Neri Cristina RN via Peripheral IV. HEPARIN 12/27/2018 10:52:30 AM 5000 units Ibeth, Neri 5000 units HEPARIN given in lab by Neri Cristina RN via Peripheral IV. VERSED 12/27/2018 10:59:36 AM 1 mg Ibeth, Neri 1 mg VERSED given in lab by Neri Cristina RN via Peripheral IV. NTG (IC) 12/27/2018 11:19:50 AM 200 mcg Letty Dietz 200 mcg NTG (IC) given in lab by Letty Dietz RT(R) via Intra-coronary. NTG (IC) 12/27/2018 11:22:33 AM 200 mcg Letty Dietz 200 mcg NTG (IC) given in lab by Letty Dietz RT(R) via Intra-coronary. BRILINTA 12/27/2018 11:40:14 AM 180 mg Ibeth, Neri 180 mg BRILINTA given in lab by Neri Cristina RN via Oral. Medication (Drip) Medication Time Given Dosage/Unit Concentration/Unit Diluent (ml) Solution IV Solutions 12/27/2018 10:00:20 AM 0 mL (IV) 1000 NaCl .9 IV Solutions given in lab by Neri Cristina RN via Peripheral IV. Pump/Drip Flow = 30 ml/hr using NaCl .9. KENGREAL BOLUS 12/27/2018 11:30:12 AM 12.9 mL 12.9 mL KENGREAL BOLUS given in lab by Neri Cristina RN via Peripheral IV. KENGREAL DRIP 12/27/2018 11:33:52 AM 3.992 mcg/kg/min 50 mg 250 NaCl .9 3.992 mcg/kg/min KENGREAL DRIP given in lab by Neri Cristina RN via Peripheral IV. Pump/Drip Flow = 1 03 ml/hr using NaCl .9 with a concentration of 50 mg in 250 ml. Initial Case Assessment Cardiovascular HR Rhythm Chest Pain 79 reg 0 Edema Present Skin color Skin None Normal Warm Dry Circulatory - Right Pulses Dorsalis Pedis Femoral 2 2 Scale (0,1,2,3,4,d) Circulatory - Left Pulses Dorsalis Pedis Femoral 2 2 Scale (0,1,2,3,4,d) Circulatory - Lower Extremities Color Lower Right Color Lower Left Normal Normal Neurological State Oriented to time-place- Alert Moves all extremities person Respiration - General Respiration Rate (B/min) 11 Chronological Log Time Study Chronological Log 10:00:03 Patient arrived via Bed. 10:00:04 Patient Name, D.O.B, / Armband Verified By R.N. 10:00:06 Consent signed by the physician and the patient and verified by the Senior Marketing Specialist staff. 10:00:07 Pre-op and post- op instructions given; patient acknowledges understanding of instructions. 10:00:10 Presedation assessment performed by Senior Marketing Specialist RN. 10:00:15 Patient has been NPO for More than 6Hrs. 10:00:15 Skin Breakdown- none reported or noted 10:00:16 Patient Warmer Placed on the Table. 10:00:18 Dolly Prominences Protected 10:00:19 A # 20 IV was noted in the Antecubital (right). Grade = 0 10:00:20 IV Solutions given in lab by Neri Cristina RN via Peripheral IV. Pump/Drip Flow = 30 ml/hr using NaCl .9. 10:00:21 History and physical on the chart or being dictated. Assessment: Initial Case, HR=79 BPM, Rhythm=reg, Chest Pain=0, Edema=None, Color=Normal, Skin = Warm, Dry Right Pulses: Valeriano Ped=2, Femoral=2 Left Pulses: Valeriano Ped=2, Femoral=2 10:00:22 Lower Right Extremities: Color=Normal Lower Left Extremities: Color=Normal Neurological: State=Alert, Ox3, COBB Respiration: Resp=11 B/min 10:00:25 Table restraints applied according to hospital policy Vitals capture started with the following parameters, Patient=Adult, Interval=5 min, Initial Pr nncekm=639 mmHg, 10:16:23 Deflation Rate=5 mmHg, Cuff placed on Left Arm 10:17:43 PHKV=226/81 mmhg, SpO2=87.0 %, Resp=12 B/min, Pain=0, Partha=10, Cosme=2 10:19:26 Bilateral groins prepped with 2% chlorhexidine, and draped after a 3 minute waiting time. 10:20:18 Reference ECG taken 10:22:09 HR=60 bpm, ZSXZ=816/80 mmhg, SpO2=91.0 %, Resp=15 B/min, Pain=0, Partha=10, Cosme=2 10:24:45 MD paged 10:27:08 HR=65 bpm, CBZM=246/74 mmhg, SpO2=93.0 %, Resp=9 B/min, Pain=0, Partha=10, Cosme=2 10:32:09 HR=70 bpm, UJIK=259/79 mmhg, SpO2=92.0 %, Resp=14 B/min, Pain=0, Partha=10, Cosme=2 10:32:36 20 mL 1% XYLOCAINE given in lab by Letty Dietz RT(R) via Subcutaneous. 10:32:55 Pressure channel 1 zeroed. 10:35:47 MD arrived 10:37:08 HR=69 bpm, HKVI=508/83 mmhg, SpO2=93.0 %, Resp=20 B/min, Pain=0, Partha=10, Cosme=2 10:38:27 2 mg VERSED given in lab by Neri Cristina, RN via Peripheral IV. Time Out. Correct patient, correct procedure, correct physician, labs, allergies, and equipment verified with warehouse general laborer 10:39:09 team present. Fire risk assesment completed (see hard stop sheet for coding). Time Out Conc urred by MD and individual staff in procedure. 10:39:31 25 mcg FENTANYL given in lab by Neri Cristina RN via Peripheral IV. 10:40:01 Case Start 10:41:27 Access site was Right Femoral Artery using ultrasound 10:41:39 A SHEATH, FR5 TERUMO (10CM) FR 5 was advanced into the Fem Art (right) using the Percutaneo us technique. 10:42:00 Activated Clotting Time Drawn 10:42:09 HR=70 bpm, ETFV=156/71 mmhg, SpO2=89.0 %, Resp=15 B/min, Pain=0, Partha=10, Cosme=2 A PIGTAIL ANG. INFINITI CATHETER FR 5 was advanced over a wire. OMNIPAQUE, 350 MG, 150ML 150ML was used 10:42:18 for injections. Recorded Pressure: LV, HR=71, Condition=Condition 1 10:43:42 (Left Ventricle) LV 131/10/16 10:44:43 The LV was injected at 10 cc/sec for a total of 30. OMNIPAQUE, 350 MG, 150ML 150ML used. Recorded Pressure: LV, Ao, HR=74, Condition=Condition 1 10:45:29 (Left Ventricle) LV 128/10/18, (Aorta) Ao 131/64/92 10:46:15 Catheter was removed A JL 4.0 INFINITI CATHETER FR 5 was advanced over a wire. OMNIPAQUE, 350 MG, 150ML 150ML was us ed for 10:46:17 injections. 10:47:04 HR=74 bpm, YQYC=257/73 mmhg, SpO2=85.0 %, Resp=19 B/min, Pain=0, Partha=10, Cosme=2 10:47:04 The LCA was injected and visualized at various angles. OMNIPAQUE, 350 MG, 150ML 150ML used . Recorded Pressure: Ao, HR=74, Condition=Condition 1 10:47:23 (Aorta) Ao 125/68/92 10:49:52 Catheter was removed A AR MOD INFINITI CATHETER FR 5 was advanced over a wire. OMNIPAQUE, 350 MG, 150ML 150ML was us ed for 10:49:53 injections. 10:51:26 The RCA was injected and visualized at various angles. OMNIPAQUE, 350 MG, 150ML 150ML used . 10:52:07 HR=79 bpm, KUIB=131/76 mmhg, SpO2=85.0 %, Resp=19 B/min, Pain=0, Partha=10, Cosme=2 10:52:30 5000 units HEPARIN given in lab by Neri Cristina RN via Peripheral IV. 10:52:52 Catheter was removed A SHEATH, FR6.5 PRELUDE 11CM FR 6.5 was exchanged in the Fem Art (right). This was necessary in order to 10:55:03 accomodate a larger catheter. A XBC 3.5 GUIDE CATHETER FR 6 was advanced over a wire. OMNIPAQUE, 350 MG, 150ML 150ML was used for 10:55:19 injections. 10:57:08 HR=76 bpm, ALQU=188/79 mmhg, SpO2=93.0 %, Resp=19 B/min, Pain=0, Partha=10, Cosme=2 10:59:22 A WIRE, BALANCE MIDDLEWEIGHT 190CM 190CM was inserted via Fem Art (right). 10:59:36 1 mg VERSED given in lab by Neri Cristina RN via Peripheral IV. 11:02:05 HR=72 bpm, BZPL=201/79 mmhg, SpO2=90.0 %, Resp=19 B/min, Pain=0, Partha=10, Cosme=2 A BALLOON, 2.0 X 10MM EUPHORA 10MM was inserted over WIRE, BALANCE MIDDLEWEIGHT 190CM 190CM via the 11:02:46 Fem Art (right). 11:03:25 ACT (Normal Range 90-180) = 304 A BALLOON, 2.0 X 10MM EUPHORA 10MM over a WIRE, BALANCE MIDDLEWEIGHT 190CM 190CM in the CIRC Mi d was 11:04:19 inflated using a 30 JONO INDEFLATOR at 16 jono for 20 sec. 11:07:08 HR=60 bpm, PDXY=527/69 mmhg, SpO2=90.0 %, Resp=20 B/min, Pain=0, Partha=10, Cosme=2 11:07:39 Balloon Removed A STENT, 2.75 15MM XENIA 2.75 15MM was advanced through a XBC 3.5 GUIDE CATHETER FR 6 over a WIR E, 11:09:10 BALANCE MIDDLEWEIGHT 190CM 190CM. 11:10:34 Stent not deployed. Stent removed and intact. 11:10:42 A WIRE, CHOICE PT EX. SUPPORT 182CM 180CM was inserted via Fem Art (right). 11:12:07 HR=71 bpm, IPEU=792/71 mmhg, SpO2=92.0 %, Resp=18 B/min, Pain=0, Partha=10, Cosme=2 11:12:22 Wire removed 11:12:39 Catheter was removed 11:13:38 A AL 1 GUIDE CATHETER FR 6 was advanced over a wire. OMNIPAQUE, 350 MG, 150ML 150ML was use d for injections. 11:15:13 A WIRE, HI TORQUE ALLSTAR 190CM 190CM was inserted via Fem Art (right). A STENT, 2.75 15MM XENIA 2.75 15MM was advanced through a AL 1 GUIDE CATHETER FR 6 over a WIRE, HI TORQUE 11:16:58 ALLSTAR 190CM 190CM. 11:17:09 HR=72 bpm, VCRE=859/73 mmhg, SpO2=93.0 %, Resp=19 B/min, Pain=0, Partha=10, Cosme=2 A STENT, 2.75 15MM XENIA 2.75 15MM was deployed using a 30 JONO INDEFLATOR at 12 atmospheres for 20 seconds 11:18:20 in the CIRC Mid. 11:19:08 Delivery device removed 11:19:50 200 mcg NTG (IC) given in lab by Letty Dietz, RT(R) via Intra-coronary. 11:21:53 Wire removed 11:21:59 HR=83 bpm, PJXF=456/74 mmhg, SpO2=91.0 %, Resp=15 B/min, Pain=0, Partha=10, Cosme=2 11:22:33 200 mcg NTG (IC) given in lab by Letty Dietz RT(R) via Intra-coronary. 11:23:50 Catheter was removed 11:24:26 An injection in the Fem Art (right) was made through the SHEATH, FR6.5 PRELUDE 11CM FR 6.5. 11:26:48 ANGIOSEAL, FR6 VIP FR 6 placement in the Fem Art (right) 11:27:46 HR=63 bpm, LZHC=164/72 mmhg, SpO2=92.0 %, Resp=15 B/min, Pain=0, Partha=10, Cosme=2 11:27:52 Case End (Physician broke scrub) 11:28:24 Catheter(s) removed without difficulty 11:28:53 Bedside Report will be given. 11:28:53 Implantable Device card placed in patient's chart. 11:28:56 A Left Heart Cath was performed. 11:30:12 12.9 mL KENGREAL BOLUS given in lab by Neri Cristina RN via Peripheral IV. 11:32:08 HR=62 bpm, ZGFS=197/79 mmhg, SpO2=95.0 %, Resp=8 B/min, Pain=0, Partha=10, Cosme=2 11:33:06 Sterile dressing applied to site 3.992 mcg/kg/min KENGREAL DRIP given in lab by Neri Cristina RN via Peripheral IV. Pump/Drip F low = 103 ml/hr 11:33:52 using NaCl .9 with a concentration of 50 mg in 250 ml. 11:34:52 CIC called. Spoke to Aundrea. 11:37:54 HR=56 bpm, NEQM=604/74 mmhg, SpO2=98.0 %, Resp=6 B/min, Pain=0, Partha=10, Cosme=2 11:40:14 180 mg BRILINTA given in lab by Neri Cristina RN via Oral. End Study - Contrast Media Used In Study Contrast Total Opened (mL) Total Used (mL) Total Wasted (mL) Omnipaque 350 140 140 0 End Study - Maximum Contrast Load Max Contrast Load (mL) 537.5 End Study - Radiation Exposure Fluoro Time Fluoro Dose (mGy) Cine Dose (uGym2) (minutes) 8.3 833 [id number] End Study - Sheaths Sheaths Pulled By Sheath Hold Time (min) Anthony Bermudze End Study - Patient Disposition Complications Transferred To Interventional Outcome No Telemetry Bed successful
[2018-12-27] MEDS ORDERED: Misc Info for Pharmacy OTHER STA (12:11)
--- NOTE | 2018-12-27 12:15 | MR ---
cc: Anthony Bermudez MD DATE: 12/27/2018 INDICATIONS FOR PROCEDURE: Non-ST elevation myocardial infarction, class IV angina, coronary artery disease, history of left circumflex artery stenting. PROCEDURE PERFORMED: 1. Retrograde left heart catheterization with left ventriculography and selective coronary angiography. 2. Angioplasty and stenting of the mid left circumflex artery. 3. Moderate sedation. ACCESS SITE: Right femoral artery. EQUIPMENT USED: A 5-Panamanian pigtail catheter, 5-Panamanian JL4 and AR modified coronary catheters. AL1 guide, Allstar wire, 2.0 balloon for predilatation, 2.75 x 15 mm [place] drug-eluting stent at 12 atmospheres to the mid left circumflex artery in-stent. MEDICATIONS: 1. Versed IV. 2. Fentanyl IV. 3. Heparin IV. 4. Nitroglycerin IC. 5. Kengreal IV. 6. Brilinta 180 mg p.o. CONTRAST: Omnipaque 140 mL. COMPLICATIONS: None. BLOOD LOSS: Less than 10 mL. METHOD OF HEMOSTASIS: Angio-Seal closure. RESULTS: A. HEMODYNAMICS: Heart rate 62 beats per minute, LV end-diastolic pressure 10 mmHg, left ventricle 125/10, aorta 125/68/92. B. LEFT VENTRICULOGRAPHY: Ejection fraction 60%. Wall motion normal. No mitral regurgitation. C. CORONARY ANGIOGRAPHY: Left main coronary artery is patent. Left anterior descending artery has 30% stenosis in the mid portion distally to a first diagonal branch. D1 patent. Left circumflex artery has 95% stenosis in the mid portion in-stent. The stent extends into a large marginal branch. OM1 is patent. Small distal circumflex artery has 90% stenosis. Right coronary artery has diffuse 30% stenosis in the proximal and mid portion. PDA patent. PLV patent. This is a dominant vessel. Stenosis in the left circumflex artery 95% in-stent. Lesion length 11 mm. Pre-OLIVE flow 2, post-OLIVE flow 3, post-stenosis 0. Post-intervention angiography: Excellent patency of the stented segment and no evidence of dissection, thrombosis or distal embolization. DIAGNOSES: 1. Non-ST elevation myocardial infarction. 2. Coronary artery disease with 95% in-stent restenosis of the left circumflex artery. 3. Overall preserved left ventricular systolic function. 4. Successful angioplasty and stenting of the mid left circumflex artery. DISPOSITION: The patient will be monitored on telemetry after her procedure. She will continue therapy with Brilinta for at least 1 year and aspirin indefinitely. We will continue aggressive modification of her cardiac risk factors, especially dyslipidemia. MD DENILSON Gutierrez/kirit , 11:40 AM , 11:48 AM MAIKOL
[2018-12-27] MEDS ORDERED: Iohexol 350 MG/ML 100 ML Vial (for Cath Lab) IVCONTRAST ONE (14:02)
[2018-12-27] MEDS ORDERED: Iohexol 350 MG/ML 50 ML Vial (for Cath Lab) IVCONTRAST ONE (14:02)
[2018-12-27 14:21] LABS: Albumin 3.5 g/dL (3.4-5.0); Anion Gap 8 meq/L (5-15); Aspartate Aminotransferase 21 U/L (15-37); Blood Urea Nitrogen 8 mg/dL (7-18); Calcium 8.7 mg/dL (8.5-10.1); Carbon Dioxide 25.6 meq/L (21.0-32.0); Chloride 111 meq/L (98-107); Glomerular Filtration Rate 69 mL/min (>89); Glucose,Random 109 mg/dL (74-106); Potassium 3.1 meq/L (3.5-5.1); Sodium 145 meq/L (136-145)
[2018-12-27 14:31] LABS: Alanine Aminotransferase 20 U/L (10-53); Alkaline Phosphatase 85 U/L (45-117); Thyroid Stimulating Hormone 0.666 uIU/mL (0.358-3.740); Total Protein 6.3 g/dL (6.4-8.2)
[2018-12-27] MEDS: Sodium Chloride 0.45 % Inj 1,000 ML IV.CONT SCH (14:49)
[2018-12-27 16:48] LABS: Amphetamine Screen,Urine Neg (Neg); Barbiturate Screen,Urine Neg (Neg); Cannabinoid Screen,Urine Neg (Neg); Cocaine Screen,Urine Neg (Neg)
[2018-12-27 17:15] LABS: Opiate Screen,Urine Neg (Neg)
[2018-12-27 22:56] VITALS: RESP 16
[2018-12-28] MEDS: Sodium Chloride 0.45 % Inj 1,000 ML IV.CONT SCH (03:01)
[2018-12-28] MEDS: Levothyroxine 125 MCG Tablet PO SCH (06:00)
[2018-12-28 06:31] LABS: Baso # (Auto) 0.1 th/mm3 (0.0-0.2); Baso % (Auto) 0.8 % (0.0-2.0); Eos # (Auto) 0.2 th/mm3 (0.0-0.4); Eos % (Auto) 1.8 % (0.0-4.0); Hematocrit 34.2 % (35.0-46.0); Hemoglobin 11.7 gm/dL (11.6-15.3); Lymph # (Auto) 1.9 th/mm3 (1.0-4.8); Lymph % (Auto) 19.5 % (9.0-44.0); Mean Corpuscular HGB Conc 34.2 % (32.0-36.0); Mean Corpuscular Hemoglobin 29.7 pg (27.0-34.0); Mean Corpuscular Volume 86.8 fL (80.0-100.0); Mean Platelet Volume 6.9 fL (7.0-11.0); Mono # (Auto) 0.7 th/mm3 (0.0-0.9); Mono % (Auto) 7.2 % (0.0-8.0); Neut % (Auto) 70.7 % (16.0-70.0); Platelet Count 255 th/mm3 (150-450); Red Blood Count 3.94 mil/mm3 (4.00-5.30); Red Cell Distribution Width 13.9 % (11.6-17.2); White Blood Count 9.9 th/mm3 (4.0-11.0)
[2018-12-28 07:12] LABS: Calcium 9.1 mg/dL (8.5-10.1); Carbon Dioxide 23.5 meq/L (21.0-32.0); Chol/HDL Ratio 3.22 Ratio
[2018-12-28 07:13] LABS: Potassium 2.9 meq/L (3.5-5.1)
[2018-12-28] MEDS: Lisinopril 20 MG Tablet PO SCH (08:45)
[2018-12-28] MEDS: Metoprolol Tartrate 25 MG Tablet PO SCH (08:46)
[2018-12-28] MEDS: Senna/Docusate Sodium 8.6/50 MG Tablet PO SCH (08:46)
[2018-12-28] MEDS: amLODIPine 5 MG Tablet PO SCH (08:46)
[2018-12-28] MEDS: Sodium Chloride 0.9% 2 ML Flush BID IV.FLUSH SCH (08:46)
[2018-12-28 09:00] VITALS: BP 125/65; TEMP 98.8; O2SAT 94
--- NOTE | 2018-12-28 10:38 | P.DS ---
DS: Providers Date of admission: 12/25/18 21:47 Primary care physician: UNKNOWN Consults: 12/26/18 04:21 Consult to Cardiology Routine Consulting Provider: Anthony Key Does the patient have a Slunk Skinner who follows them?: Yes Preferred Acute Dialysis Nurse:: Stabilizing Machine Operator Physician Reason for Consultation: NSTEMI Notified:: Service Spoke with:: Alia Date Notified:: 12/26/18 Time Notified:: 04:32 Ordering Provider: EDUARDO 12/26/18 14:41 HUB Only Consult Order Routine Consulting Provider: JobHoreca,Insurance DS: Diagnosis Discharge Diagnosis (1) Elevated troponin: Status: Acute (2) Hypertension: Status: Acute (3) Hypothyroidism: Status: Acute (4) Vomiting: Status: Acute DS: Summary The patient is a very pleasant 63-year-old female who presented with chest pain. Patient with non-ST elevation MS/CAD with elevated troponins on admission. Patient underwent cardiac catheterization by Dr. Key . S/p L cx stenting. Groin benign. Continue Brilinta, ASA, beta lee and statin. F/u w her physicians in [place]. Noted with hypokalemia replaced. Discussed with Dr. key to give potassium supplement as outpatient. Patient to have follow-up as outpatient with PCP and consultants. Since she is discharged home in stable condition. Time Spent with Patient Total time spent providing and/or coordinating discharge services: > 30 min Exam Narrative Exam Narrative: GENERAL: Pleasant 63-year-old female, well-nourished well- developed appears in not acute distress. CARDIOVASCULAR: Regular rate and rhythm. RESPIRATORY: No accessory muscle use. Clear to auscultation. Breath sounds equal bilaterally. GASTROINTESTINAL: Abdomen soft, non-tender, nondistended. Hepatic and splenic margins not palpable. MUSCULOSKELETAL: Right groin without hematoma, dressing CDI. Extremities without clubbing, cyanosis, or edema. No obvious deformities. NEUROLOGICAL: Awake and alert. No obvious cranial nerve deficits. Motor grossly within normal limits. Five out of 5 muscle strength in the arms and legs. Normal speech. PSYCHIATRIC: Appropriate mood and affect; insight and judgment normal. Results Labs on day of discharge: Labs from last 24 hours 12/28/18 12/28/18 12/27/18 04:52 04:52 15:15 WBC 9.9 RBC 3.94 L Hgb 11.7 Hct 34.2 L MCV 86.8 MCH 29.7 MCHC 34.2 RDW 13.9 Plt Count 255 MPV 6.9 L Neut % (Auto) 70.7 H Lymph % (Auto) 19.5 [place] % (Auto) 7.2 Eos % (Auto) 1.8 Baso % (Auto) 0.8 Neut # (Auto) 7.0 Lymph # (Auto) 1.9 [place] # (Auto) 0.7 Eos # (Auto) 0.2 Baso # (Auto) 0.1 WBC Differential . Differential Comment Auto diff final Sodium 145 Potassium 2.9 L* Chloride 112 H Carbon Dioxide 23.5 Anion Gap 10 BUN 7 Creatinine 0.79 Estimated GFR 73 L Random Glucose 104 Calcium 9.1 Total Bilirubin AST ALT Alkaline Phosphatase Total Protein Albumin Triglycerides 338 H Cholesterol 145 LDL Cholesterol, Calc 32 HDL Cholesterol 45.0 Cholesterol/HDL Ratio 3.22 TSH Urine Opiates Screen Neg Ur Barbiturates Screen Neg Ur Amphetamines Screen Neg U Benzodiazepines Scrn Pos H Urine Cocaine Screen Neg U Cannabinoids Screen Neg 12/27/18 12/27/18 13:49 13:49 WBC RBC Hgb Hct MCV MCH MCHC RDW Plt Count MPV Neut % (Auto) Lymph % (Auto) [place] % (Auto) Eos % (Auto) Baso % (Auto) Neut # (Auto) Lymph # (Auto) [place] # (Auto) Eos # (Auto) Baso # (Auto) WBC Differential Differential Comment Sodium 145 Potassium 3.1 L Chloride 111 H Carbon Dioxide 25.6 Anion Gap 8 BUN 8 Creatinine 0.83 Estimated GFR 69 L Random Glucose 109 H Calcium 8.7 Total Bilirubin 0.4 AST 21 ALT 20 Alkaline Phosphatase 85 Total Protein 6.3 L D Albumin 3.5 Triglycerides Cholesterol LDL Cholesterol, Calc HDL Cholesterol Cholesterol/HDL Ratio TSH Cancelled 0.666 Urine Opiates Screen Ur Barbiturates Screen Ur Amphetamines Screen U Benzodiazepines Scrn Urine Cocaine Screen U Cannabinoids Screen Impressions ITS Impressions Chest X-Ray 12/25/18 20:00 CONCLUSION: 1. Minimal left lung base airspace disease, presumably atelectasis. Discharge Plan Discharge Disposition Patient Disposition: 01 Discharge Home Discharge Condition Condition: Stable Discharge Order Discharge Orders: Discharge Order (Routine); Ordered 12/28/18 Ordered By: Elizabeth Mckoy Discharge Details Anticipated Discharge Date: 12/28/18 Discharge Comment: DC when cleared by cardiology Physicians Team Primary Care Provider: UNKNOWN, Attending Provider: Elizabeth Mckoy Other Providers: Anthony Key ; [facility],Insurance Rxs /Orders / Referrals /Forms Prescriptions: New metoprolol tartrate 25 mg Tablet 12.5 mg PO BID Qty: 60 RF: 0 ticagrelor [Brilinta] 90 mg Tablet 90 mg PO BID Qty: 60 RF: 3 atorvastatin 40 mg Tablet 40 mg PO DAILY Qty: 30 RF: 0 Continue amlodipine [Norvasc] 5 mg Tablet 5 mg PO DAILY RF: 0 aspirin [Aspir-81] 81 mg Tablet,Delayed Release (Dr/Ec) 81 mg PO DAILY RF: 0 acetaminophen 650 mg Tablet Extended Release 650 mg PO Q6H PRN (Reason: Pain) RF: 0 lisinopril 40 mg Tablet 40 mg PO DAILY RF: 0 levothyroxine 125 mcg Capsule 125 mcg PO DAILY RF: 0 duloxetine 90 mg PO DAILY RF: 0 Discontinued clopidogrel [Plavix] 75 mg Tablet 75 mg PO DAILY RF: 0 rosuvastatin 20 mg Tablet 20 mg PO DAILY RF: 0 metoprolol tartrate 25 mg Tablet 25 mg PO BID RF: 0 Referrals: UNKNOWN, [Primary Care Provider] - See Instructions Discharge Instructions Patient Printed Instructions: Metoprolol (By mouth), Atorvastatin (By mouth), Ticagrelor (By mouth), Heart Healthy Diet (DC), Acute Wound Care (DC), Heart Catheterization (DC) Status ED Status: Left Department Discharge Information Discharge Date/Time: 12/28/18 13:19
[2018-12-28 11:02] VITALS: PULSE 62
--- NOTE | 2018-12-28 14:21 | P.PNCA ---
Subjective Interval history: No CP or SOB, feels well Medications and Allergies Allergies Allergy/AdvReac Type Severity Reaction Status Date / Time acetaminophen [From Vicodin] Allergy Intermediate Vomiting Verified 12/25/18 20: 00 hydrocodone [From Vicodin] Allergy Intermediate Vomiting Verified 12/25/18 20:00 Home Medications Medication Instructions Recorded Confirmed Type acetaminophen 650 mg PO Q6H PRN 12/25/18 12/25/18 History amlodipine [Norvasc] 5 mg PO DAILY 12/25/18 12/25/18 History aspirin [Aspir-81] 81 mg PO DAILY 12/25/18 12/25/18 History duloxetine 90 mg PO DAILY 12/25/18 12/25/18 History levothyroxine 125 mcg PO DAILY 12/25/18 12/25/18 History lisinopril 40 mg PO DAILY 12/25/18 12/25/18 History Physical Exam Vital signs: Vital Signs 12/27/18 15:00 12/27/18 16:00 12/27/18 16:04 Temperature Pulse Rate 70 70 64 Respiratory Rate 20 Blood Pressure 127/64 Pulse Oximetry 99 12/27/18 17:00 12/27/18 18:00 12/27/18 19:00 Temperature Pulse Rate 62 60 96 H Respiratory Rate Blood Pressure Pulse Oximetry 12/27/18 20:00 12/27/18 21:00 12/27/18 22:00 Temperature 99 F Pulse Rate 73 72 65 Respiratory Rate 16 Blood Pressure 139/75 Pulse Oximetry 98 12/27/18 23:00 12/27/18 23:52 12/28/18 00:00 Temperature Pulse Rate 69 67 68 Respiratory Rate 16 Blood Pressure 133/69 Pulse Oximetry 97 12/28/18 01:00 12/28/18 02:00 12/28/18 03:00 Temperature Pulse Rate 62 58 L 63 Respiratory Rate Blood Pressure Pulse Oximetry 12/28/18 03:53 12/28/18 04:00 12/28/18 05:00 Temperature Pulse Rate 67 60 62 Respiratory Rate 16 Blood Pressure 130/76 Pulse Oximetry 96 12/28/18 06:00 12/28/18 07:00 12/28/18 08:00 Temperature 98.8 F Pulse Rate 58 L 63 56 L Respiratory Rate 16 Blood Pressure 125/65 Pulse Oximetry 94 L 12/28/18 09:00 12/28/18 10:00 12/28/18 11:00 Temperature Pulse Rate 62 60 62 Respiratory Rate Blood Pressure Pulse Oximetry Intake & Output 12/27/18 12/28/18 12/28/18 18:59 06:59 18:59 Intake Total 1850 / 1850 1480 / 1480 Output Total 1300 / 1300 800 / 800 Balance 550 / 550 680 / 680 Weight 189 lb 13.088 oz Intake: IV 1250 / 1250 1000 / 1000 Heparin/D5W 25,000 U/250 mL 25, 250 / 250 000 unit In 250 ml @ 1,000 UNITS/HR 10 mls/hr IV.CONT TITRATE PRN Rx#:[id number] NS Inj 1,000 ML @ 70 mls/hr IV. 1000 / 1000 CONT .[id number] JOHN Rx#:[id number] 1/2 Normal Saline Inj 1,000 ML 1000 / 1000 @ 84 mls/hr IV.CONT .[id number] [facility] Rx#:[id number] Oral 600 / 600 480 / 480 Output: Urine 1300 / 1300 800 / 800 Other: # Voids 3 Date of Last Bowel Movement 12/27/18 12/27/18 12/27/18 # Bowel Movements 3 - Constitutional no acute distress - Routine Respiratory Exam Present: CTA bilaterally - Routine Cardiovascular Exam Present: RRR, S1, S2 - Routine Abdominal Exam Present: soft - Routine Extremities Exam Absent: edema Comments: groin stable - Routine Neurological Exam Present: alert, oriented X3 - Routine Psychiatric Exam Present: normal affect Results 12/28/18 04:52 12/28/18 04:52 Cardiac Enzymes 12/27/18 Range/Units 13:49 AST 21 (15-37) U/L Coagulation 12/26/18 12/26/18 12/27/18 Range/Units 14:50 23:50 06:23 APTT 37.6 H D 51.8 H D 49.7 H (23.4-31.7) sec Lipids 12/28/18 Range/Units 04:52 Triglycerides 338 H (42-150) mg/dL Cholesterol 145 (120-200) mg/dL HDL Cholesterol 45.0 (40.0-60.0) mg/dL Cholesterol/HDL Ratio 3.22 Ratio CBC 12/27/18 12/28/18 Range/Units 06:23 04:52 WBC 9.5 9.9 (4.0-11.0) th/mm3 RBC 4.06 3.94 L (4.00-5.30) mil/mm3 Hgb 12.2 11.7 (11.6-15.3) gm/dL Hct 35.5 34.2 L (35.0-46.0) % Plt Count 252 255 (150-450) th/mm3 Neut # (Auto) 7.0 (1.8-7.7) th/mm3 Lymph # (Auto) 1.9 (1.0-4.8) th/mm3 [place] # (Auto) 0.7 (0.0-0.9) th/mm3 Eos # (Auto) 0.2 (0.0-0.4) th/mm3 Baso # (Auto) 0.1 (0.0-0.2) th/mm3 Comprehensive Metabolic Panel 12/27/18 12/28/18 Range/Units 13:49 04:52 Sodium 145 145 (136-145) meq/L Potassium 3.1 L 2.9 L* (3.5-5.1) meq/L Chloride 111 H 112 H (98-107) meq/L Carbon Dioxide 25.6 23.5 (21.0-32.0) meq/L BUN 8 7 (7-18) mg/dL Creatinine 0.83 0.79 (0.50-1.00) mg/dL Calcium 8.7 9.1 (8.5-10.1) mg/dL AST 21 (15-37) U/L ALT 20 (10-53) U/L Alkaline Phosphatase 85 (45-117) U/L Total Protein 6.3 L D (6.4-8.2) g/dL Albumin 3.5 (3.4-5.0) g/dL Intake and Output 12/27/18 12/28/18 12/28/18 22:59 06:59 14:59 Intake Total 600 / 600 1480 / 1480 Output Total 1300 / 1300 800 / 800 Balance -700 / -700 680 / 680 Intake: IV 1000 / 1000 1/2 Normal Saline Inj 1,000 ML 1000 / 1000 @ 84 mls/hr IV.CONT .[id number] [facility] Rx#:[id number] Oral 600 / 600 480 / 480 Output: Urine 1300 / 1300 800 / 800 Other: # Voids 3 Date of Last Bowel Movement 12/27/18 12/27/18 12/27/18 # Bowel Movements 3 Weight 189 lb 13.088 oz Assessment and Plan - Assessment (1) NSTEMI (non-ST elevated myocardial infarction) Code(s): I21.4 - Non-ST elevation (NSTEMI) myocardial infarction Status: Acute (2) CAD (coronary artery disease) Code(s): I25.10 - Atherosclerotic heart disease of [place] coronary artery without angina pectoris Status: Acute (3) Elevated troponin Code(s): R74.8 - Abnormal levels of other serum enzymes Status: Acute (4) Hypertension Code(s): I10 - Essential (primary) hypertension Status: Acute (5) Hypothyroidism Code(s): E03.9 - Hypothyroidism, unspecified Status: Acute (6) Vomiting Code(s): R11.10 - Vomiting, unspecified Status: Acute - Plan Stable post L cx stenting. Groin benign. Continue Brilinta, ASA, beta lee and statin. F/u w her physicians in [place]. (6) Vomiting Qualifiers: Vomiting type: unspecified Vomiting Intractability: non-intractable Nausea presence: with nausea Qualified Code(s): R11.2 - Nausea with vomiting, unspecified
== END 2018-12-28 13:19 | disposition home or self-care (01) | DRG 246 ==
LOC: NEPD 18:02 → NEDA 21:47 → NEDH 12-26 01:46 → HCIS 12-26 05:10
PROVIDERS: ADMIT Hospitalist; ATTEND Hospitalist
DX: Z88.6 Allergy status to analgesic agent; Z79.02 Long term (current) use of antithrombotics/antiplatelets; T82.855A Stenosis of coronary artery stent, initial encounter; Z86.73 Personal history of transient ischemic attack (TIA), and cerebral infarction without residual deficits; E78.5 Hyperlipidemia, unspecified; R19.7 Diarrhea, unspecified; I25.2 Old myocardial infarction; Z82.49 Family history of ischemic heart disease and other diseases of the circulatory system; Z95.5 Presence of coronary angioplasty implant and graft; Z79.82 Long term (current) use of aspirin; I25.119 Atherosclerotic heart disease of native coronary artery with unspecified angina pectoris; Z90.710 Acquired absence of both cervix and uterus; I21.4 Non-ST elevation (NSTEMI) myocardial infarction; E87.6 Hypokalemia; E87.0 Hyperosmolality and hypernatremia; Z87.891 Personal history of nicotine dependence; F32.9 Major depressive disorder, single episode, unspecified; F41.9 Anxiety disorder, unspecified; Z88.5 Allergy status to narcotic agent; R11.2 Nausea with vomiting, unspecified; I10 Essential (primary) hypertension; E03.9 Hypothyroidism, unspecified
CPT/HCPCS: 71010; 71045; 80048; 80053; 80061; 80307; 82550; 82552; 83690; 83735; 84443; 84484; 85002; 85025; 85027; 85610; 85730; 90761; 90774; 90784; 92928; 93005; 93458; 96361; 96374; 99152; 99153; 99285; C1725; C1760; C1769; C1874; C1887; C1893; C8952; C9460; G0269; J1644; J2250; J2405; J3010; J7030; Q9967